=== PATIENT | male | born 1935 | race African-American/Black ===

== ENCOUNTER → 2017-03-03 | Outpatient (CLI) | payer BC ==
[~2017-03-03] MED LIST: ASPEC325 PO; CLB200 PO; FLUT0.0529 NAE; GLUC10007 PO; HYDR-5688 PO; METO-217 PO; MULT-506 PO; SENN-91 PO
[2017-03-03 15:18] LABS: HEMATOCRIT 31.4 % (42-52); MEAN CELL VOLUME 98.7 fL (80-100); MEAN CORPUSCULAR HEMOGLOBIN 31.1 pg (25-34); MEAN CORPUSCULAR HGB CONC 31.5 g/dl (32-36); PLATELET COUNT 176 K/uL (130-400); RED BLOOD COUNT 3.18 M/uL (4.7-6.1); WHITE BLOOD COUNT 3.24 K/uL (4.8-10.8)
[2017-03-03 15:36] LABS: ALT/SGPT 22 U/L (12-78); AST/SGOT 17 U/L (15-37); BLOOD UREA NITROGEN 19 mg/dl (7-18); BUN/CREATININE RATIO 15.6 (10-20); CALCIUM 8.9 mg/dl (8.5-10.1); CARBON DIOXIDE 28 mmol/L (21-32); CHLORIDE 109 mmol/L (98-107); GLUCOSE 115 mg/dl (70-99); POTASSIUM 3.8 mmol/L (3.5-5.1); SODIUM 142 mmol/L (136-145)
[2017-03-03 15:39] LABS: ALB/GLOB RATIO 0.9 (0.9-2); ALKALINE PHOSPHATASE 80 U/L (45-117)
[2017-03-03 16:19] LABS: IMMUNOGLOBULN A 10.8 mg/dL (70-400)
[2017-03-03 17:03] LABS: BASO % 0.3 %; BASO ABS # 0.01 K/uL (0-0.2); COMPLETE YES; EOS % 1.5 %; GIANT PLATELETS 1+; IG% 0.3 %; LYMPH % 51.9 %; LYMPH ABS # 1.68 K/uL (1.2-3.4); MONO % 6.2 %; NEUT % 39.8 %; OVALOCYTES 1+; SCHISTOCYTES 1+
== END | disposition home or self-care (01) ==
LOC: C.LABSPEC 14:56
PROVIDERS: ATTEND Internal Medicine
DX: I10 Essential (primary) hypertension (principal); D47.2 Monoclonal gammopathy; D61.818 Other pancytopenia

== ENCOUNTER → 2017-07-07 | Outpatient (CLI) | payer BC ==
[2017-07-07 13:13] LABS: HEMATOCRIT 29.7 % (42-52); MEAN PLATELET VOLUME 10.9 fL (7.4-10.4); PLATELET COUNT 146 K/uL (130-400); RED BLOOD COUNT 2.97 M/uL (4.7-6.1); WHITE BLOOD COUNT 2.67 K/uL (4.8-10.8)
[2017-07-07 13:29] LABS: ESTIMATED AVERAGE GLUCOSE 108 mg/dl; HA1C FLAG Normal (Normal)
[2017-07-07 13:35] LABS: ALT/SGPT 20 U/L (12-78); AST/SGOT 16 U/L (15-37); BLOOD UREA NITROGEN 14 mg/dl (7-18); BUN/CREATININE RATIO 14.3 (10-20); CALCIUM 8.7 mg/dl (8.5-10.1); CARBON DIOXIDE 28 mmol/L (21-32); CHLORIDE 106 mmol/L (98-107); CHOLESTEROL 231 mg/dl (0-200); CREATININE 0.96 mg/dl (0.60-1.40); GLUCOSE 82 mg/dl (70-99); POTASSIUM 3.7 mmol/L (3.5-5.1); SODIUM 140 mmol/L (136-145)
[2017-07-07 13:38] LABS: ALB/GLOB RATIO 0.9 (0.9-2); ALKALINE PHOSPHATASE 77 U/L (45-117); CHOLESTEROL/HDL RATIO 2.2; HDL CHOLESTEROL 103 mg/dl; TRIGLYCERIDES 45 mg/dl (0-150); VERY LOW DENSITY LIPOPROT CALC 9 mg/dl
[2017-07-07 13:55] LABS: COMPLETE YES; EOS % 1.9 %; LYMPH % 52.8 %; LYMPH ABS # 1.41 K/uL (1.2-3.4); MONO % 6.7 %; NEUT % 38.6 %; SCHISTOCYTES 1+
== END | disposition home or self-care (01) ==
LOC: C.LAB 11:48
PROVIDERS: ATTEND Internal Medicine
DX: R73.9 Hyperglycemia, unspecified (principal); I10 Essential (primary) hypertension; E78.5 Hyperlipidemia, unspecified; D61.818 Other pancytopenia

== ENCOUNTER 2020-05-21 15:40 | Observation (INO) ==
[2020-05-21] MEDS ORDERED: SODIUM CHLORIDE 0.9% 1000ML 1,000 ML IV SCH (16:00)
--- NOTE | 2020-05-21 16:31 | Emergency Department Note ---
Impression & Plan Bilateral pneumonia, Weakness, Anemia, COVID-19 virus infection ED Provider Note NAME: NICHOLAS HOLGUIN AGE: 84 SEX: M : 1935 ARRIVES VIA: Walk-In INFORMANT: Patient, ED PROVIDER(S): Curt Donald DO CHIEF COMPLAINT: Weakness HPI: The patient is an 84-year-old male who presented to the emergency department for an evaluation of generalized weakness. The patient states that he has had increased bowel movements with loose bowel movements. He is also noticed some dark bowel movements. He denies having any chest pain. He denies having any shortness of breath. The patient has no abdominal pain. He does complain of generalized weakness which began approximately 1 week ago. He states that he as well as some of his family members are Covid positive which was found through testing with the primary care physician. He denies having any fever. He denies having a productive cough. He states that he was concerned be cause he cares for his significant other and has been having difficulty trying to manage her because of his generalized weakness. ROS: See above HPI for pertinent positives & negatives. A total of 10 systems reviewed and were otherwise negative. PAST MEDICAL HISTORY: See Below PAST SURGICAL HISTORY: See Below FAMILY HISTORY: See Below SOCIAL HISTORY: See Below HOME MEDICATIONS: See Below ALLERGIES: See Below VITALS: See Below PHYSICAL EXAMINATION: GENERAL: Patient is awake alert in no acute distress patient is resting comfortably and showing no signs of anxiety EYES: The conjunctivae are clear. The pupils are round and reactive. EARS, NOSE, MOUTH AND THROAT: The nose is without any evidence of any deformity. Mucous membranes are moist. Tongue is midline. NECK: The neck is nontender and supple. RESPIRATORY: Diminished breath sounds are noted throughout. There was no tachypnea or conversational dyspnea. CARDIOVASCULAR: Regular rate and rhythm noted there no murmurs rubs or gallops normal S1 normal S2. GASTROINTESTINAL: The abdomen is soft. Abdomen is nontender. Rectal exam revealed brown stool which was heme-negative. MUSCULOSKELETAL/EXTREMITIES: There is no evidence of gross deformity full range of motion is noted in the hips and shoulders. SKIN: There is no obvious evidence of any rash. Trace pedal edema was noted bilaterally. NEUROLOGIC: Patient is awake alert and oriented x3 strength is symmetric patellar reflexes are 2+ bilaterally. The patient is able to hold each leg off the bed for greater than 5 seconds. MEDICAL DECISION MAKING: The patient is an 84-year-old male who presented to the emergency department for an evaluation of generalized weakness. The patient states he was having generalized weakness and shortness of breath with exertion. The patient had no specific cough that was diagnosed recently with COVID-19. His lung sounds were abnormal on physical exam. I discussed the patient's laboratory and radiographic studies with him. He was found to have signs of bilateral pneumonia. Blood cultures were sent and the patient was started on IV antibiotics. I discussed patient's condition [facility]. Given the patient's comorbidities age and other laboratory findings he may require inpatient management. They have agreed to evaluate the patient in the emergency department for further management and disposition. Triage Nursing notes reviewed. Prior medical records reviewed Vital Signs: reviewed and remarkable for elevated blood pressure. Differential diagnosis: Infection, dehydration, metabolic abnormality, hypo/hyperglycemia, electrolyte disturbance, anemia, hypoxia, cardiac sources, intracerebral event, toxicologic, neurologic, as well as other pathologies. ER treatment provided: See below Diagnostics interpreted by me: ECG: EKG was obtained in the emergency department. My interpretation is normal sinus rhythm at 88 bpm. There is no ectopy. There is no acute ST segment abnormalities noted. This was compared to a tracing from January 12, 2015. No significant changes were noted. Cardiac Monitoring: An order was placed for continuous cardiac monitoring. The monitor shows a rate of 89 bpm with sinus rhythm. Laboratory studies: As stated above and show below. Imaging studies: See below Consultation(s): 1814: I discussed the case with Dr. Fisher who is on-call for the [facility] hospitalist group. Past Med/Surg History Medical History BPH (benign prostatic hyperplasia) CAD (coronary artery disease) Dyslipidemia Hypertension Lumbar spinal stenosis Monoclonal gammopathy Osteoarthritis Peripheral neuropathy fingers and bilateral feet Surgical History History of cardiac cath History of colonoscopy Hx of transurethral resection of prostate S/P bilateral hip replacements S/P hernia repair umbilical hernia as a child S/P laminectomy lumbar S/P left knee arthroscopy Family History Other No family history of adverse response to anesthesia Social History Smoking Status: Former smoker Second Hand Exposure: Yes (hx); Hx Alcohol Use: Yes Alcohol type: beer and other Hx Substance Use: Yes (CBD oil & ointment) Preferred Language: Tristanian Communication Ability: Effective 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 Beliefs That Will Affect Care: None Current Living Situation: Spouse Feels Safe at Home: Yes Assistive Devices: Glasses Allergies Allergies Allergy/AdvReac Type Severity Reaction Status Date / Time pollen extracts Allergy Mild NASAL ITCHY Verified 05/21/20 18:30 Home Meds Home Medications Medication Instructions Recorded Confirmed sennosides [senna] 8.6 mg PO HS 06/26/19 05/21/20 cannabidiol See Rx Instructions .ROUTE .COMPLEX 02/14/20 05/21/20 metoprolol succinate 50 mg PO HS 05/21/20 05/21/20 Results & Data (ED) Vital Signs Vital Signs - 24 hr 05/21/20 15:50 05/21/20 16:16 05/21/20 16:20 Temperature 37.7 C H Temperature Source Oral Pulse Rate 100 H 88 90 Pulse Rate [Apical] Pulse Rate from SpO2 Sensor 89 90 Pulse Rhythm Regular Pulse Rhythm [Apical] Pulse Strength Normal Pulse Strength [Apical] Respiratory Rate 18 14 18 Respiratory Effort / Characteristics Non-Labored Spontaneous Respiratory Depth Normal Respiratory Pattern Regular Blood Pressure 150/68 H 128/77 Blood Pressure [Right Arm] Blood Pressure Mean 95 92 Blood Pressure Mean [Right Arm] Blood Pressure Position Semi-fowlers Blood Pressure Position [Right Arm] Pulse Oximetry 96 96 94 Oxygen Delivery Method Room Air Sepsis Recent Fever Within 48 Hours Yes Sepsis New/Unexplained Change in Mental Status No Sepsis Action Taken by Nursing No Action Required 05/21/20 16:30 05/21/20 16:31 05/21/20 17:00 Temperature Temperature Source Pulse Rate 91 H 91 H 86 Pulse Rate [Apical] 86 Pulse Rate from SpO2 Sensor 84 89 79 Pulse Rhythm Pulse Rhythm [Apical] Regular Pulse Strength Pulse Strength [Apical] Normal Respiratory Rate 14 17 18 Respiratory Effort / Characteristics Non-Labored Spontaneous Respiratory Depth Normal Respiratory Pattern Regular Blood Pressure 131/73 Blood Pressure [Right Arm] 131/73 Blood Pressure Mean 87 Blood Pressure Mean [Right Arm] 92 Blood Pressure Position Blood Pressure Position [Right Arm] Semi-fowlers Pulse Oximetry 94 97 96 Oxygen Delivery Method Room Air Sepsis Recent Fever Within 48 Hours Sepsis New/Unexplained Change in Mental Status Sepsis Action Taken by Nursing 05/21/20 17:01 05/21/20 18:01 05/21/20 18:30 Temperature Temperature Source Pulse Rate 85 90 83 Pulse Rate [Apical] Pulse Rate from SpO2 Sensor 83 Pulse Rhythm Pulse Rhythm [Apical] Pulse Strength Pulse Strength [Apical] Respiratory Rate 19 25 H 20 Respiratory Effort / Characteristics Respiratory Depth Respiratory Pattern Blood Pressure 124/66 114/74 143/79 H Blood Pressure [Right Arm] Blood Pressure Mean 96 78 102 Blood Pressure Mean [Right Arm] Blood Pressure Position Blood Pressure Position [Right Arm] Pulse Oximetry 96 Oxygen Delivery Method Sepsis Recent Fever Within 48 Hours Sepsis New/Unexplained Change in Mental Status Sepsis Action Taken by Nursing 05/21/20 19:01 Temperature Temperature Source Pulse Rate 85 Pulse Rate [Apical] Pulse Rate from SpO2 Sensor 84 Pulse Rhythm Pulse Rhythm [Apical] Pulse Strength Pulse Strength [Apical] Respiratory Rate 17 Respiratory Effort / Characteristics Respiratory Depth Respiratory Pattern Blood Pressure 154/83 H Blood Pressure [Right Arm] Blood Pressure Mean 102 Blood Pressure Mean [Right Arm] Blood Pressure Position Blood Pressure Position [Right Arm] Pulse Oximetry 97 Oxygen Delivery Method Sepsis Recent Fever Within 48 Hours Sepsis New/Unexplained Change in Mental Status Sepsis Action Taken by Care Home Medications Current Medication List: was personally reviewed by me Laboratory Data Attestation: I reviewed the patient's lab results. Result diagrams: 05/21/20 16:33 05/21/20 16:33 Lab Results 05/21/20 05/21/20 05/21/20 Range/Units 16:33 16:33 16:33 WBC 4.71 L (4.8-10.8) K/uL RBC 2.68 L (4.7-6.1) M/uL Hgb 8.2 L (14.0-18.0) g/dL Hct 26.4 L (42-52) % MCV 98.5 (80-100) fL MCH 30.6 (25-34) pg MCHC 31.1 L (32-36) g/dL RDW Std Deviation 52.7 H (36.4-46.3) fL RDW Coeff of Fatuma 14.6 H (11.5-14.5) % Plt Count 101 L (130-400) K/uL Immature Gran % (Auto) 0.4 % Neut % (Auto) 86.2 % Lymph % (Auto) 6.8 % [place] % (Auto) 6.6 % Eos % (Auto) 0.0 % Baso % (Auto) 0.0 % Neut # (Auto) 4.06 (1.4-6.5) K/uL Lymph # (Auto) 0.32 L (1.2-3.4) K/uL [place] # (Auto) 0.31 (0.11-0.59) K/uL Eos # (Auto) 0.00 (0-0.5) K/uL Baso # (Auto) 0.00 (0-0.2) K/uL Immature Gran # (Auto) 0.02 (0.00-0.02) K/uL Dohle Bodies 1+ Platelet Estimate Decreased L (Normal) Acanthocytes (Spur) 1+ PT 10.8 (9.0-12.0) Seconds INR 1.0 (0.9-1.1) APTT 26.4 (21.0-31.0) Seconds PTT Ratio 0.9 Sodium 135 L (136-145) mmol/L Potassium 3.4 L (3.5-5.1) mmol/L Chloride 104 (98-107) mmol/L Carbon Dioxide 26 (21-32) mmol/L Anion Gap 5.0 (3-11) BUN 18 (7-18) mg/dl Creatinine 1.13 (0.6-1.4) mg/dl Est Cr Clr Drug Dosing 53.4 ml/min Est GFR ( Amer) 68.8 Est GFR (Non-Af Amer) 59.4 BUN/Creatinine Ratio 16.1 (10-20) Glucose 121 H (70-99) mg/dl Calcium 8.9 (8.5-10.1) mg/dl Magnesium 2.2 (1.8-2.4) mg/dl Total Bilirubin 0.7 (0.2-1) mg/dl AST 25 (15-37) U/L ALT 33 (12-78) U/L Alkaline Phosphatase 60 (45-117) U/L Total Creatine Kinase 310 H (39-308) U/L Troponin I < 0.015 (0-0.045) ng/ml Total Protein 7.4 (6.4-8.2) gm/dl Albumin 2.7 L (3.4-5.0) gm/dl Globulin 4.7 H (2.5-4.0) gm/dl Albumin/Globulin Ratio 0.6 L (0.9-2) TSH 0.326 (0.300-4.500) uIu/ml Administered Medications Discontinued Medications Sodium Chloride (Nss 1000ml) 1,000 mls @ 999 mls/hr IV .Q1H1M TE Stop: 05/21/20 17:00 Last Infusion: 05/21/20 18:06 Dose: 0 mls/hr Documented by: [id number] Admin: 05/21/20 16:45 Dose: 999 mls/hr Documented by: [id number] Sodium Chloride (Nss) 500 mls @ 999 mls/hr IV .Q31M ONE Stop: 05/21/20 18:34 Last Admin: 05/21/20 18:45 Dose: 999 mls/hr Documented by: [id number] Piperacillin Sod/Tazobactam Sod (Zosyn) 4.5 gm in 120 mls @ 240 mls/hr IV NOW ONE Stop: 05/21/20 18:33 Last Admin: 05/21/20 18:45 Dose: 240 mls/hr Documented by: [id number] Imaging Data Radiologist's Impression: Patient: NICHOLAS HOLGUIN Admit Date: 05/21/20 MR#: [id number] Address1: [address] [place] [address] Acct ID:[id number] Address2: Date: 1935 [facility] Zip: [place] [address] Age: 84 Location: ED Sex: M Room/Bed: Att Phy: Diagnosis: COV +, SOB, WEAKNESS, FATIGUE Yenni Phy: Rahat Kang M.D. Service Date: 05/21/20 [facility] Phy: Interpreting Phy: aSrbjit Torrez Admit Phy: Ordering Phy: Curt Donald DO cc: ~ XR chest 1V portable HISTORY: 84 years-old Male weakness acute weakness COMPARISON: Chest radiograph 07/29/2014 TECHNIQUE: Portable AP view of the chest FINDINGS: Cardiac silhouette is mildly enlarged. No pneumothorax or large pleural effusion. No overt pulmonary edema. Patchy left midlung and bibasilar airspace o pacities. Degenerative changes of the shoulders and spine. IMPRESSION: Patchy bibasilar and left midlung airspace opacities are suspicious for pneumonia. Follow-up recommended. ACT 112: Negative or not required by law. The above report was generated using voice recognition software. It may contain grammatical, syntax or spelling errors. Electronically signed by: Max Torrez M.D. 05/21/2020 4:40 PM Dictated: 05/21/20 1639 Transcribed: 05/21/20 1639 Blood Pressure Blood Pressure Findings: Elevated blood pressure Blood Pressure Disposition: further management by hospitalist Discharge Plan Visit Data Chief Complaint: Flu Like Symptoms Stated Complaint: COV +, SOB, WEAKNESS, FATIGUE ED Provider: Curt Donald Discharge Problem: Bilateral pneumonia, Weakness, Anemia, COVID-19 virus infection Patient Disposition: Being Evaluated by Hospitalist Condition: Good Forms Stand Alone Forms: My [employer] Prescriptions Prescriptions: No Action cannabidiol See Rx Instructions .ROUTE .COMPLEX RF: 0 metoprolol succinate 50 mg tablet extended release 24 hr 50 mg PO HS RF: 0 sennosides [senna] 8.6 mg Tablet 8.6 mg PO HS RF: 0 Referrals Referrals: Rahat Rosado MD [Primary Care Provider] -
--- NOTE | 2020-05-21 16:41 | XRay Report ---
XR chest 1V portable HISTORY: 84 years-old Male weakness acute weakness COMPARISON: Chest radiograph 07/29/2014 TECHNIQUE: Portable AP view of the chest FINDINGS: Cardiac silhouette is mildly enlarged. No pneumothorax or large pleural effusion. No overt pulmonary edema. Patchy left midlung and bibasilar airspace opacities. Degenerative changes of the shoulders an d spine. IMPRESSION: Patchy bibasilar and left midlung airspace opacities are suspicious for pneumonia. Follow -up recommended. ACT 112: Negative or not required by law. The above report was generated using voice recognition software. It may contain grammatical, syntax o r spelling errors. Electronically signed by: Max Torrez M.D. 05/21/2020 4:40 PM
[2020-05-21 16:50] LABS: Mean Corpuscular Hgb Conc 31.1 g/dL (32-36)
[2020-05-21 17:00] LABS: Hematocrit (blood only) 26.4 % (42-52); Hemoglobin 8.2 g/dL (14.0-18.0); Mean Corpuscular Hemoglobin 30.6 pg (25-34); Mean Corpuscular Volume 98.5 fL (80-100); RDW Coefficient of Variation 14.6 % (11.5-14.5); RDW Standard Deviation 52.7 fL (36.4-46.3); Red Blood Count 2.68 M/uL (4.7-6.1); White Blood Count 4.71 K/uL (4.8-10.8)
[2020-05-21 17:05] LABS: Albumin Level 2.7 gm/dl (3.4-5.0); Aspartate Aminotransferase 25 U/L (15-37); BUN Creatinine Ratio 16.1 (10-20); Blood Urea Nitrogen 18 mg/dl (7-18); Calcium 8.9 mg/dl (8.5-10.1); Carbon Dioxide 26 mmol/L (21-32); Chloride 104 mmol/L (98-107); Creatinine Clr Calc Pharmacy 53.4 ml/min; Est GFR (African American) 68.8; Est GFR (Non-African American) 59.4; Glucose 121 mg/dl (70-99); Magnesium 2.2 mg/dl (1.8-2.4); Potassium 3.4 mmol/L (3.5-5.1); Sodium 135 mmol/L (136-145)
[2020-05-21 17:06] LABS: Partial Thromboplastin Ratio 0.9; Partial Thromboplastin Time 26.4 Seconds (21.0-31.0); Prothrombin Time 10.8 Seconds (9.0-12.0)
[2020-05-21 17:16] LABS: Alanine Aminotransferase 33 U/L (12-78); Albumin Globulin Ratio 0.6 (0.9-2); Alkaline Phosphatase 60 U/L (45-117); Bilirubin,Total 0.7 mg/dl (0.2-1); Creatine Kinase 310 U/L (39-308); Globulin 4.7 gm/dl (2.5-4.0); Thyroid Stimulating Hormone 0.326 uIu/ml (0.300-4.500); Total Protein 7.4 gm/dl (6.4-8.2); Troponin I < 0.015 ng/ml (0-0.045)
[2020-05-21 17:32] LABS: Platelet Count 101 K/uL (130-400)
[2020-05-21 17:33] LABS: Acanthocytes 1+; Dohle Bodies 1+; Immature Granulocytes # (auto) 0.02 K/uL (0.00-0.02); Immature Granulocytes % (auto) 0.4 %; Lymphocytes # (auto) 0.32 K/uL (1.2-3.4); Lymphocytes % (auto) 6.8 %; Monocytes # (auto) 0.31 K/uL (0.11-0.59); Monocytes % (auto) 6.6 %; Neutrophils # (auto) 4.06 K/uL (1.4-6.5); Neutrophils % (auto) 86.2 %; Platelet Estimate Decreased (Normal)
[2020-05-21] MEDS ORDERED: SODIUM CHLORIDE 0.9% 500 ML IV ONE (18:04)
[2020-05-21] MEDS ORDERED: PIPERACILL/TAZOBAC CONSULT ACTIVE PRN (18:04)
[2020-05-21] MEDS ORDERED: PIPERACILLIN/TAZOBACTAM 4.5 GM/120 ML BAG IV ONE (18:04)
[2020-05-21] MEDS ORDERED: DEXAMETHASONE SOD INJ 10 MG/ML VIAL IV ONE (18:52)
--- NOTE | 2020-05-21 19:34 | History & Physical Report ---
Date of Service May 21, 2020 Assessment & Plan (1) COVID-19 virus infection: pt is diagnosed with outpt Covid testing 05/13, he is out of the window for Remdesivir, and not significantly hypoxic to meet for convalescent plasma. will use decadron, and zinc and add po azithro, if he decompensates with hypoxia will consider convalscent plasma. biggest issue is severe weakness and deconditioning, if not improved in am will consider PT/OT (2) Hypertension: continue metoprolol (3) DVT prophylaxis: lovenox sc 40 mg History of Present Illness Primary Care Provider: Rahat Rosado MD Patient presents with profound weakness and inability to get up and walk across the room. He been diagnosed with Covid May 13 as an outpatient provider. His was admitted to the hospital on May 20. Reportedly today the patient was too weak to stand could not get out of bed his son summoned EMS and he was brought by ambulance to the hospital. In the emergency department he did evidence of bilateral pneumonia he was nonhypoxic he does have some anemia worse than his usual chronic anemia he denies having any diarrhea he does not have loss of taste or smell but does have alteration platelet count is 101 lymphocytes are low D-dimer was not checked he is mildly hypokalemic. Speaking to the family the patient was significantly weak and unable to care for himself at home he will be observed in our facility hopefully with some dexamethasone he may feel somewhat better\ Allergies Allergy/AdvReac Type Severity Reaction Status Date / Time pollen extracts Allergy Mild NASAL ITCHY Verified 05/21/20 18:30 Home Medications Home Medications Medication Instructions Recorded Confirmed Type sennosides [senna] 8.6 mg PO HS 06/26/19 05/21/20 History cannabidiol See Rx Instructions .ROUTE .COMPLEX 02/14/20 05/21/20 History metoprolol succinate 50 mg PO HS 05/21/20 05/21/20 History Past Med/Surg History Medical History BPH (benign prostatic hyperplasia) CAD (coronary artery disease) Dyslipidemia Hypertension Lumbar spinal stenosis Monoclonal gammopathy Osteoarthritis Peripheral neuropathy fingers and bilateral feet Surgical History History of cardiac cath History of colonoscopy Hx of transurethral resection of prostate S/P bilateral hip replacements S/P hernia repair umbilical hernia as a child S/P laminectomy lumbar S/P left knee arthroscopy Family History Other No family history of adverse response to anesthesia Social History Smoking Status: Former smoker Second Hand Exposure: Yes (hx); Hx Alcohol Use: Yes Alcohol type: beer and other Hx Substance Use: Yes (CBD oil & ointment) Preferred Language: Yi Communication Ability: Effective 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 Beliefs That Will Affect Care: None Current Living Situation: Spouse Feels Safe at Home: Yes Assistive Devices: Glasses Review of Systems Review of Systems: Moderate distress and fatigue no headache, blurry or double vision no speech or swallowing issues no chest pain, pressure or palpitations Dyspnea on exertion, non productive cough or wheezes no abdominal pain, nausea or vomiting, diarrhea or constipation no dysuria, hematuria or frequency no focal joint pain or swelling no back pain, CVA tenderness or radicular pain no bruising, bleeding or rashes no focal signs of weakness or numbness or altered sensation no complaints of anxiety or depression. Physical Exam Physical Exam: The patient appeared well nourished and normally developed. Vital signs as documented. Head exam is normocephalic atraumatic no scleral icterus Neck is without JVD, thyromegaly, or carotid bruits. Lungs are fairly clear to auscultation, no focal loss of breath sounds Cardiac exam, Rhythm is regular.. No murmurs, rubs or gallops. Abdominal exam reveals normal bowel sounds, soft non tender, no masses Extremities are nonedematous and both pedal pulses are present Neurologic exam is alert and oriented, no focal loss of strength or sensation Skin is without bruises or rashes Psychologically is without concerns for anxiety or depression. Results & Data Results & Data ([facility]) Vital Signs (Past 12 Hours) Vital Signs Temp Pulse Pulse Resp BP BP Pulse Ox 05/21/20 19:01 85 17 154/83 H 97 05/21/20 18:30 83 20 143/79 H 05/21/20 18:01 90 25 H 114/74 05/21/20 17:01 85 19 124/66 96 05/21/20 17:00 86 18 96 05/21/20 16:31 91 H 17 97 05/21/20 16:30 91 H 86 14 131/73 131/73 94 05/21/20 16:20 90 18 94 05/21/20 16:16 88 14 128/77 96 05/21/20 15:50 99.9 F H 100 H 18 150/68 H 96 cxr IMPRESSION: Patchy bibasilar and left midlung airspace opacities are suspi cious for pneumonia. Follow-up recommended. ECG nsr Code Status & VTE Plan VTE Prophylaxis Plan VTE Prophylaxis will be ordered: Yes PG Care Time/CCT Total # of Minutes Spent Total Time Spent with Patient: Total time spent is greater than 50% in coordination of care (as documented) at patient's floor/unit and/or counseling patient: Coding Level of Care Code 95763 Initial Inpt Care Lvl 3 Diagnoses COVID-19 virus infection U07.1 Hypertension I10 DVT prophylaxis Z29.9
[2020-05-21] MEDS ORDERED: DEXAMETHASONE SOD INJ 10 MG/ML VIAL IV SCH (22:02)
[2020-05-21] MEDS ORDERED: ACETAMINOPHEN 325 MG TAB PO PRN (22:02)
[2020-05-21] MEDS ORDERED: ONDANSETRON INJ 2 MG/ML 2 ML VIAL IV PRN (22:02)
[2020-05-21] MEDS ORDERED: AZITHROMYCIN 250 MG TAB PO ONE (22:30)
[2020-05-21] MEDS: SENNA 8.6 MG TAB PO SCH (23:52)
[2020-05-21] MEDS: METOPROLOL SUCC 50MG EXT REL TAB PO SCH (23:52)
[2020-05-21] MEDS: ENOXAPARIN INJ 40 MG/0.4 ML SYR SQ SCH (23:52)
[2020-05-22 04:02] LABS: Appearance Urine Clear (Clear); Bacteria Urine Automated Negative (Negative); Bilirubin Urine Negative (Negative); Blood Urine Trace (Negative); Color Urine Dark Yellow; Epithelial Cell Urine Auto >30 /lpf (0-5); Glucose Urine UA Negative (Negative); Ketones Urine 1+ (Negative); Leukocyte Esterase Urine Trace (Negative); Nitrite Urine Negative (Negative); Protein Urine 2+ (Negative); RBC Urine Automated 0-4 /hpf (0-4); Specific Gravity Urine 1.022 (1.000-1.030); Urobilinogen Urine Negative (Negative); pH Urine 5.5 (4.5-7.5)
[2020-05-22 04:28] LABS: Mucus Urine Present (None Prsent)
[2020-05-22 07:17] LABS: Hypochromasia Present
[2020-05-22] MEDS: AZITHROMYCIN 250 MG TAB PO SCH (07:57)
[2020-05-22] MEDS: DEXAMETHASONE SOD PHOSPHATE 6 MG in SYRINGE 0 ML IV SCH (07:57)
[2020-05-22] MEDS: ZINC SULFATE 220 MG CAPSULE PO SCH (07:57)
[2020-05-22 09:13] LABS: Basophils # (auto) 0.01 K/uL (0-0.2); Basophils % (auto) 0.2 %; Hematocrit (blood only) 27.7 % (42-52); Hemoglobin 8.5 g/dL (14.0-18.0); Immature Granulocytes # (auto) 0.02 K/uL (0.00-0.02); Immature Granulocytes % (auto) 0.4 %; Lymphocytes # (auto) 0.44 K/uL (1.2-3.4); Lymphocytes % (auto) 9.4 %; Mean Corpuscular Hemoglobin 30.4 pg (25-34); Mean Corpuscular Hgb Conc 30.7 g/dL (32-36); Mean Corpuscular Volume 98.9 fL (80-100); Mean Platelet Volume 11.4 fL (7.4-10.4); Monocytes # (auto) 0.18 K/uL (0.11-0.59); Monocytes % (auto) 3.9 %; Neutrophils # (auto) 4.02 K/uL (1.4-6.5); Neutrophils % (auto) 86.1 %; Platelet Count 137 K/uL (130-400); RDW Coefficient of Variation 14.9 % (11.5-14.5); RDW Standard Deviation 53.8 fL (36.4-46.3); White Blood Count 4.67 K/uL (4.8-10.8)
[2020-05-22 09:31] LABS: BUN Creatinine Ratio 14.5 (10-20); Calcium 8.8 mg/dl (8.5-10.1); Creatinine Clr Calc Pharmacy 60.9 ml/min; Est GFR (African American) 72.7; Est GFR (Non-African American) 62.7; Potassium 3.2 mmol/L (3.5-5.1)
[2020-05-22 09:33] LABS: D Dimer 9160 ug/L FEU (0-500)
--- NOTE | 2020-05-22 10:45 | Electrocardiogram Report ---
Test Reason : Blood Pressure : / mmHG Vent. Rate : 088 BPM Atrial Rate : 088 BPM P-R Int : 140 ms QRS Dur : 104 ms QT Int : 376 ms P-R-T Axes : 074 030 031 degrees QTc Int : 454 ms Sinus rhythm Normal ECG When compared with ECG of 02-JAN-2015 12:12, Vent. rate has increased BY 33 BPM Nonspecific T wave abnormality has replaced inverted T waves in Inferior leads Confirmed by Jh Eaton ([id number]) on 05/22/2020 10:45:15 AM Referred By: REFERRED SELF Confirmed By:Jh Eaton
[2020-05-22] MEDS: POTASSIUM CHLORIDE CRTAB 20 MEQ TABCR PO SCH (12:19)
[2020-05-22 18:49] LABS: Folate (Folic Acid) 9.64 ng/ml (>5.38); Vitamin B12 > 2000 pg/ml (211-911)
[2020-05-22] MEDS ORDERED: Nursing to Pharmacy Communication SCH (19:00)
[2020-05-22] MEDS: SENNA 8.6 MG TAB PO SCH (19:25)
[2020-05-22] MEDS: METOPROLOL SUCC 50MG EXT REL TAB PO SCH (19:26)
[2020-05-22] MEDS: ENOXAPARIN INJ 40 MG/0.4 ML SYR SQ SCH (19:26)
--- NOTE | 2020-05-22 20:19 | Hospitalist Progress Note ---
Date of Service May 22, 2020 Assessment & Plan (1) COVID-19 virus infection: Stable vitals, stable pulmonary status, and acceptable labs. Day #2 of IV decadron 6mg daily. Deferring on remdesivir and convalescent plasma due to no hypoxia. D-dimer elevated, but again he is quite stable. He is well into his illness course - was dx on 05/13/20, but had symptoms for several days prior to that. Cont supportive care, IV fluids, decadron, PT/OT evals. (2) Bilateral pneumonia: As seen on cxr. 2nd COVID-19. Minimal symptoms. No hypoxia. Day #2 of z-pack. (3) Hypertension: Cont toprol xl once daily Controlled (4) CAD (coronary artery disease): no ischemic symptoms at this time. Cont metoprolol xl. uncertain why he is not on aspirin daily. (5) BPH (benign prostatic hyperplasia): no LUTS not on meds (6) Dyslipidemia: (7) Pancytopenia: etiology? viral suppression from COVID-19?? B12, folate, TSH wnl. if pancytopenia persists despite resolution of COVID-19 he will need w/u for multiple myeloma and other hematological causes. CBC in am for stability. (8) Hypokalemia: replace IV/PO repeat BMP am mag level wnl (9) DVT prophylaxis: lovenox 40mg daily updated sonZeus, on 05/22/20 PT/OT evals to assist with dispo planning Admission and Anticipated Discharge Date Admission Date: May 21, 2020 Subjective patient lying in bed comfortably during the visit. staff report he ambulated to bathroom w/o difficulty. minimal cough. no dyspnea. no abd pain. some diarrhea. appetite fair at best. main complaint is weakness/fatigue. Review of Systems Constitutional: + fatigue; no chills Ear, Nose, Mouth, Throat: no loss of taste or smell Respiratory: no dyspnea and no wheezing Cardiovascular: no chest pain Gastrointestinal: no abdominal pain, no nausea and no vomiting Physical Exam Constitutional: + ill appearing (tired appearing ); no acute distress and no altered mental status ENMT: external ear and nose normal, oropharynx normal Respiratory: no respiratory distress Auscultation: + crackles (scant b/l ); no wheezes Cardiovascular: Rate/Rhythm: regular rate and regular rhythm Heart Sounds: normal S1, normal S2 and + murmur (1/6 systolic LSB ) Vessels: posterior tibial pulses present and dorsalis pedis pulses present; no JVD Extremities: no edema Gastrointestinal (Abdomen): normal bowel sounds, soft, nontender, no hepatosplenomegaly Skin: no rashes, warm and dry Psychiatric: A+Ox3, euthymic affect Results & Data Results & Data ([facility]) Vital Signs (Past 12 Hours) Vital Signs Temp Pulse Resp BP Pulse Ox 05/22/20 19:22 36.8 C 70 18 138/82 94 05/22/20 19:09 36.6 C 95 H 19 132/74 95 05/22/20 15:15 36.5 C 69 19 126/64 94 Laboratory Results Laboratory Results - last 24 hr 05/21/20 05/22/20 05/22/20 16:33 03:35 08:48 WBC 4.67 L RBC 2.80 L Hgb 8.5 L Hct 27.7 L MCV 98.9 MCH 30.4 MCHC 30.7 L RDW Std Deviation 53.8 H RDW Coeff of Fatuma 14.9 H Plt Count 137 MPV 11.4 H Immature Gran % (Auto) 0.4 Neut % (Auto) 86.1 Lymph % (Auto) 9.4 [place] % (Auto) 3.9 Eos % (Auto) 0.0 Baso % (Auto) 0.2 Neut # (Auto) 4.02 Lymph # (Auto) 0.44 L [place] # (Auto) 0.18 Eos # (Auto) 0.00 Baso # (Auto) 0.01 Immature Gran # (Auto) 0.02 Hypochromasia Present D-Dimer Sodium Potassium Chloride Carbon Dioxide Anion Gap BUN Creatinine Est Cr Clr Drug Dosing Est GFR ( Amer) Est GFR (Non-Af Amer) BUN/Creatinine Ratio Glucose Calcium Vitamin B12 Folate Urine Color Dark Yellow Urine Appearance Clear Urine pH 5.5 Ur Specific [place] 1.022 Urine Protein 2+ H Urine Glucose (UA) Negative Urine Ketones 1+ H Urine Blood Trace H Urine Nitrite Negative Urine Bilirubin Negative Urine Urobilinogen Negative Ur Leukocyte Esterase Trace H Urine WBC (Auto) 5-10 H Urine RBC (Auto) 0-4 U Hyaline Cast (Auto) 5-10 H U Epithel Cells (Auto) >30 H Urine Bacteria (Auto) Negative Urine Mucus Present A Urine Yeast Not Reportable 05/22/20 05/22/20 05/22/20 08:48 08:48 08:48 WBC RBC Hgb Hct MCV MCH MCHC RDW Std Deviation RDW Coeff of Fatuma Plt Count MPV Immature Gran % (Auto) Neut % (Auto) Lymph % (Auto) [place] % (Auto) Eos % (Auto) Baso % (Auto) Neut # (Auto) Lymph # (Auto) [place] # (Auto) Eos # (Auto) Baso # (Auto) Immature Gran # (Auto) Hypochromasia D-Dimer 9160 H* Sodium 136 Potassium 3.2 L Chloride 105 Carbon Dioxide 26 Anion Gap 5.0 BUN 16 Creatinine 1.08 Est Cr Clr Drug Dosing 60.9 Est GFR ( Amer) 72.7 Est GFR (Non-Af Amer) 62.7 BUN/Creatinine Ratio 14.5 Glucose 132 H Calcium 8.8 Vitamin B12 > 2000 H Folate 9.64 Urine Color Urine Appearance Urine pH Ur Specific [place] Urine Protein Urine Glucose (UA) Urine Ketones Urine Blood Urine Nitrite Urine Bilirubin Urine Urobilinogen Ur Leukocyte Esterase Urine WBC (Auto) Urine RBC (Auto) U Hyaline Cast (Auto) U Epithel Cells (Auto) Urine Bacteria (Auto) Urine Mucus Urine Yeast PG Care Time/CCT Total # of Minutes Spent Total Time Spent with Patient: Total time spent is greater than 50% in coordi nation of care (as documented) at patient's floor/unit and/or counseling patient: Coding Level of Care Code 64503 Subseq Obs Care Lvl 3 Diagnoses COVID-19 virus infection U07.1 Bilateral pneumonia J18.9 Lung location: lower lobe of lung Pneumonia type: due to unspecified organism Hypertension I10 CAD (coronary artery disease) I25.10 BPH (benign prostatic hyperplasia) N40.0 Dyslipidemia E78.5 Pancytopenia D61.818 Hypokalemia E87.6 DVT prophylaxis Z29.9 (1) Bilateral pneumonia Lung location: lower lobe of lung Pneumonia type: due to unspecified organism Qualified Code(s): J18.9 - Pneumonia, unspecified organism
[2020-05-22] MEDS ORDERED: NSS + 20MEQ KCL 20 MEQ/1,000 ML BAG IV SCH (20:30)
[2020-05-22] MEDS: POTASSIUM CHLORIDE 10 MEQ TABCR PO SCH (21:26)
[2020-05-23] MEDS: AZITHROMYCIN 250 MG TAB PO SCH (07:59)
[2020-05-23] MEDS: DEXAMETHASONE SOD PHOSPHATE 6 MG in SYRINGE 0 ML IV SCH (07:59)
[2020-05-23] MEDS: POTASSIUM CHLORIDE 10 MEQ TABCR PO SCH ×3 (07:59→20:15)
[2020-05-23] MEDS: ZINC SULFATE 220 MG CAPSULE PO SCH (07:59)
[2020-05-23 08:23] LABS: Mean Corpuscular Hgb Conc 30.9 g/dL (32-36)
[2020-05-23 08:45] LABS: Hematocrit (blood only) 28.2 % (42-52); Hemoglobin 8.7 g/dL (14.0-18.0); Mean Corpuscular Hemoglobin 30.5 pg (25-34); Mean Corpuscular Volume 98.9 fL (80-100); RDW Coefficient of Variation 14.7 % (11.5-14.5); RDW Standard Deviation 53.2 fL (36.4-46.3); Red Blood Count 2.85 M/uL (4.7-6.1); White Blood Count 4.48 K/uL (4.8-10.8)
[2020-05-23 08:49] LABS: Immature Granulocytes # (auto) 0.01 K/uL (0.00-0.02); Immature Granulocytes % (auto) 0.2 %; Lymphocytes # (auto) 0.66 K/uL (1.2-3.4); Lymphocytes % (auto) 14.7 %; Monocytes # (auto) 0.22 K/uL (0.11-0.59); Monocytes % (auto) 4.9 %; Neutrophils # (auto) 3.59 K/uL (1.4-6.5); Neutrophils % (auto) 80.2 %; Platelet Count 124 K/uL (130-400); Platelet Estimate Decreased (Normal); Schistocytes 1+
[2020-05-23 08:52] LABS: Calcium 8.9 mg/dl (8.5-10.1); Creatinine Clr Calc Pharmacy 70.7 ml/min; Est GFR (African American) 87.1; Est GFR (Non-African American) 75.1; Potassium 3.4 mmol/L (3.5-5.1)
[2020-05-23] MEDS: ENOXAPARIN INJ 40 MG/0.4 ML SYR SQ SCH (20:15)
[2020-05-23] MEDS: METOPROLOL SUCC 50MG EXT REL TAB PO SCH (20:15)
[2020-05-23] MEDS: SENNA 8.6 MG TAB PO SCH (20:16)
--- NOTE | 2020-05-23 23:15 | Hospitalist Progress Note ---
Date of Service May 23, 2020 Assessment & Plan (1) COVID-19 virus infection: Doing very well. Day #3 of decadron 6mg daily. Deferred on remdesivir and convalescent plasma due to no hypoxia stable pulmonary status. D-dimer elevated, but again he is quite stable. He is well into his illness course - was dx on 05/13/20, but had symptoms for several days prior to that. Cont supportive care. (2) Bilateral pneumonia: As seen on cxr. 2nd COVID-19. Minimal to no symptoms. Never had hypoxia. Day #3 of azithromycin as ordered by admitting MD. Continue decadron. (3) Hypertension: Cont toprol xl once daily BPs mildly high at times but simply cont to monitor (4) CAD (coronary artery disease): no ischemic symptoms at this time. Cont metoprolol xl. uncertain why he is not on aspirin daily. (5) BPH (benign prostatic hyperplasia): no LUTS not on meds (6) Dyslipidemia: (7) Pancytopenia: etiology? viral suppression from COVID-19?? but it appears the pancytopenia has been present 2-3 years. B12, folate, TSH wnl. if pancytopenia persists despite resolution of COVID-19 he will need w/u for multiple myeloma and other hematological causes. defer to outpatient PCP. CBC in am for stability. (8) Hypokalemia: improved to 3.4 today repeat level am mag level wnl (9) DVT prophylaxis: lovenox 40mg daily updated sonZeus, on 05/22/20 updated sonNick, on 05/23/20 PT/OT catrachito appreciated he is ok for d/c on Tuesday change observation to admission status I certify that the inpatient services were ordered in accordance with Medicare regulations governing the order. This includes certification that hospital inpatient services are reasonable and necessary and in the case of services not specified as inpatient-only under 42 CFR 419.22(n), that they are appropriately provided as inpatient services in accordance to with the 2-midnight benchmark under 43 CFR 412.3(e) Admission and Anticipated Discharge Date Admission Date: May 23, 2020 Subjective patient sitting in the chair during the visit. he stated "I'm definitely doing much better today." appetite MUCH improved - in fact, he got [employer] from [employer] and had it delivered to his room. he is having mild loose stool. no dyspnea. minimal cough. no abd pain. we had lengthy discussion about his 's disposition. he states that before she got sick with COVID she was using walker to walk around. Review of Systems Constitutional: + fatigue; no fever, no chills, no body aches and no anorexia Respiratory: no cough, no dyspnea and no dyspnea on exertion Cardiovascular: no chest pain Gastrointestinal: + diarrhea/loose stools; no abdominal pain, no nausea and no vomiting Physical Exam Constitutional: no acute distress, not ill appearing and no altered mental status ENMT: external ear and nose normal, oropharynx normal Respiratory: no respiratory distress Auscultation: no crackles and no wheezes Cardiovascular: Rate/Rhythm: regular rate and regular rhythm Heart Sounds: normal S1, normal S2 and + murmur (1/6 systolic LSB ) Vessels: posterior tibial pulses present and dorsalis pedis pulses present; no JVD Extremities: no edema Gastrointestinal (Abdomen): normal bowel sounds, soft, nontender, no hepatosplenomegaly Skin: no rashes, warm and dry Psychiatric: A+Ox3, euthymic affect Results & Data Results & Data ([facility]) Vital Signs (Past 12 Hours) Vital Signs Temp Pulse Resp BP Pulse Ox 05/23/20 20:14 36.6 C 83 18 170/90 H 95 05/23/20 15:56 36.8 C 84 20 158/78 H 93 Laboratory Results Laboratory Results - last 24 hr 05/23/20 05/23/20 08:04 08:04 WBC 4.48 L RBC 2.85 L Hgb 8.7 L Hct 28.2 L MCV 98.9 MCH 30.5 MCHC 30.9 L RDW Std Deviation 53.2 H RDW Coeff of Fatuma 14.7 H Plt Count 124 L Immature Gran % (Auto) 0.2 Neut % (Auto) 80.2 Lymph % (Auto) 14.7 [place] % (Auto) 4.9 Eos % (Auto) 0.0 Baso % (Auto) 0.0 Neut # (Auto) 3.59 Lymph # (Auto) 0.66 L [place] # (Auto) 0.22 Eos # (Auto) 0.00 Baso # (Auto) 0.00 Immature Gran # (Auto) 0.01 Platelet Estimate Decreased L Schistocytes 1+ Sodium 139 Potassium 3.4 L Chloride 107 Carbon Dioxide 27 Anion Gap 5.0 BUN 20 H Creatinine 0.93 Est Cr Clr Drug Dosing 70.7 Est GFR ( Amer) 87.1 Est GFR (Non-Af Amer) 75.1 BUN/Creatinine Ratio 21.0 H Glucose 88 Calcium 8.9 PG Care Time/CCT Total # of Minutes Spent Total Time Spent with Patient: Total time spent is greater than 50% in coordination of care (as documented) at patient's floor/unit and/or counseling patient: Coding Level of Care Code 80913 Subseq Hosp Care Lvl 2 Diagnoses COVID-19 virus infection U07.1 Bilateral pneumonia J18.9 Lung location: lower lobe of lung Pneumonia type: due to unspecified organism Hypertension I10 CAD (coronary artery disease) I25.10 BPH (benign prostatic hyperplasia) N40.0 Dyslipidemia E78.5 Pancytopenia D61.818 Hypokalemia E87.6 DVT prophylaxis Z29.9 (1) Bilateral pneumonia Lung location: lower lobe of lung Pneumonia type: due to unspecified organism Qualified Code(s): J18.9 - Pneumonia, unspecified organism
[2020-05-24] MEDS: AZITHROMYCIN 250 MG TAB PO SCH (09:04)
[2020-05-24] MEDS: ZINC SULFATE 220 MG CAPSULE PO SCH (09:05)
[2020-05-24] MEDS: POTASSIUM CHLORIDE 10 MEQ TABCR PO SCH (09:05)
[2020-05-24] MEDS: DEXAMETHASONE SOD PHOSPHATE 6 MG in SYRINGE 0 ML IV SCH (09:10)
[2020-05-24 10:28] LABS: BUN Creatinine Ratio 21.2 (10-20); Calcium 8.7 mg/dl (8.5-10.1); Creatinine Clr Calc Pharmacy 72.2 ml/min; Est GFR (African American) 89.4; Est GFR (Non-African American) 77.1; Potassium 3.3 mmol/L (3.5-5.1)
[2020-05-24 10:37] LABS: Basophils # (auto) 0.01 K/uL (0-0.2); Basophils % (auto) 0.3 %; Echinocytes 2+; Hematocrit (blood only) 27.7 % (42-52); Hemoglobin 8.6 g/dL (14.0-18.0); Immature Granulocytes # (auto) 0.03 K/uL (0.00-0.02); Immature Granulocytes % (auto) 0.8 %; Lymphocytes # (auto) 0.96 K/uL (1.2-3.4); Lymphocytes % (auto) 26.7 %; Mean Platelet Volume 13.3 fL (7.4-10.4); Monocytes # (auto) 0.21 K/uL (0.11-0.59); Monocytes % (auto) 5.8 %; Neutrophils # (auto) 2.39 K/uL (1.4-6.5); Neutrophils % (auto) 66.4 %; Ovalocytes 1+; Platelet Count 121 K/uL (130-400); RDW Coefficient of Variation 14.9 % (11.5-14.5); Red Blood Count 2.77 M/uL (4.7-6.1); Schistocytes 1+
--- NOTE | 2020-05-24 16:13 | Discharge Summary ---
Date of Service May 24, 2020 Admission HPI Per Admitting Provider Patient presents with profound weakness and inability to get up and walk across the room. He been diagnosed with Covid May 13 as an outpatient provider. His was admitted to the hospital on May 20. Reportedly today the patient was too weak to stand could not get out of bed his son summoned EMS and he was brought by ambulance to the hospital. In the emergency department he did evidence of bilateral pneumonia he was nonhypoxic he does have some anemia worse than his usual chronic anemia he denies having any diarrhea he does not have loss of taste or smell but does have alteration platelet count is 101 lymphocytes are low D-dimer was not checked he is mildly hypokalemic. Speaking to the family the patient was significantly weak and unable to care for himself at home he will be observed in our facility hopefully with some dexamethasone he may feel somewhat better\ Principal Diagnosis COVID-19 pneumonia Discharge Exam Constitutional WD/WN, vitals as above Eyes EOM intact bilaterally; no conjunctival abnormality ENMT external ear and nose normal, oropharynx normal Neck trachea midline, no thyromegaly normal visual inspection Respiratory normal respiratory effort, lungs clear to auscultation no respiratory distress Cardiovascular RRR, no murmur, no edema Gastrointestinal (Abdomen) Inspection/Auscultation: abdomen normal to inspection; abdomen not distended Musculoskeletal no cyanosis or clubbing, extremities motor strength 5/5 Skin no rashes, warm and dry Neurologic moves all extremities and awake Psychiatric Orientation: alert, oriented to person and cooperative Discharge Data Allergies Allergy/AdvReac Type Severity Reaction Status Date / Time pollen extracts Allergy Mild NASAL ITCHY Verified 05/21/20 18:30 Consultations 05/21/20 18:14 ED Decision to Admit Stat Hospital Course (1) COVID-19 virus infection: Doing very well. Deferred on remdesivir and convalescent plasma due to no hypoxia stable pulmonary status. D-dimer elevated, but again he is quite stable. - Discharged off dexamethasone. Recovery trial indicates harm if patients not needing supplemental O2. - Discharged on 3 more days of azithromycin to finish 5-day course. No clear indication of bacterial pneumonia, but this should cover any atypical that may be there. (2) Bilateral pneumonia: As seen on cxr. 2nd COVID-19. Minimal to no symptoms. Never had hypoxia. - As above (3) Hypertension: Cont toprol xl once daily BPs mildly high at times but simply cont to monitor (4) CAD (coronary artery disease): no ischemic symptoms at this time. Cont metoprolol xl. uncertain why he is not on aspirin daily. (5) BPH (benign prostatic hyperplasia): no LUTS not on meds (6) Dyslipidemia: (7) Pancytopenia: etiology? It appears the pancytopenia has been present 2-3 years. B12, folate, TSH wnl. Defer to outpatient PCP. (8) Hypokalemia: improved to 3.4 today repeat level am mag level wnl (9) DVT prophylaxis: lovenox 40mg daily Total Time Total Time Spent Total Time Spent (In Minutes): 35 Discharge Plan Discharge Items Patient Disposition: Home - Self-Care Reason For Visit: WEAKNESS, COVID PNEUMONIA Discharge Diagnosis: Covid pneumonia Condition on Discharge: Good Activity: Resume your previous activity Non-emergency contact: Primary Care Provider Call non-emergency contact if: your symptoms worsen and your temperature is above 101 Follow-up/Referrals: Rahat Thomas MD [Primary Care Provider] - (DR. THOMAS WILL CALL YOU TUESDAY TO SCHEDULE AN APPOINTMENT) Diet: Regular Addtl Attending Provider Instructions: You were admitted to the hospital with Covid pneumonia. Fortunately, you are doing well enough to go home. You have not needed oxygen while in the hospital. This is great news! We are discharging you on just a short course of additional antibiotics. The data do not support further steroids with your stable breathing. Pending Studies at Discharge: No Stand-Alone Forms: My [facility] [employer], Smoking Cessation Medications and DC Order Prescriptions: New azithromycin 250 mg Tablet 250 mg PO DAILY@0800 Qty: 3 RF: 0 Continued cannabidiol See Rx Instructions .ROUTE .COMPLEX RF: 0 metoprolol succinate 50 mg tablet extended release 24 hr 50 mg PO HS RF: 0 sennosides [senna] 8.6 mg Tablet 8.6 mg PO HS RF: 0 Discharge Orders: Discharge Order (Routine); Ordered 05/24/20 Ordered By: Pineda Marroquin Admission Data Admit Date/Time: 05/23/20 17:08 Attending Provider: Pineda Marroquin Admit Provider: Dani Cee Primary Care Provider: Aboul-Hosn,Rahat Other Providers: Pineda Marroquin Other Interventions: Discharge Summary Assessment (RN) Last Done: 05/24/20 13:05 Coding Level of Care Code D/C Day Management >30 mins Diagnoses COVID-19 virus infection U07.1 Bilateral pneumonia J18.9 Lung location: lower lobe of lung Pneumonia type: due to unspecified organism Hypertension I10 CAD (coronary artery disease) I25.10 BPH (benign prostatic hyperplasia) N40.0 Dyslipidemia E78.5 Pancytopenia D61.818 Hypokalemia E87.6 DVT prophylaxis Z29.9
== END 2020-05-24 14:55 | disposition home or self-care (01) | DRG 177 ==
LOC: ED 15:40 → 2S 15:40 → SUATTDRO 19:54 → 2S 21:01 → SUATTDRO 05-23 17:08